=== PATIENT | female | born 1955 | race Caucasian/White ===

== ENCOUNTER 2018-03-27 07:27 | Inpatient (IN) | payer BC ==
[2018-03-27] MEDS ORDERED: DEXAMETHASONE 4 MG/ML 1 ML INJ (10:17)
[2018-03-27] MEDS ORDERED: GLYCOPYRROLATE 0.4 MG INJ (10:17)
[2018-03-27] MEDS ORDERED: MIDAZOLAM 1 MG/ML 2 ML INJ ×2 (10:17→12:18)
[2018-03-27] MEDS ORDERED: NEOSTIGMINE 3 MG/3 ML SYRINGE (10:17)
[2018-03-27] MEDS ORDERED: FENTAnyl 50 MCG/ML VIAL ×2 (10:17→12:18)
[2018-03-27] MEDS ORDERED: ROCURONIUM 50 MG INJ (10:17)
[2018-03-27] MEDS ORDERED: PROPOFOL 20 ML ×2 (10:17→12:34)
[2018-03-27] MEDS ORDERED: LIDOCAINE 2% (SDV) 5 ML INJ (10:17)
[2018-03-27] MEDS ORDERED: ONDANSETRON 4 MG INJ ×2 (10:18→12:18)
[2018-03-27] MEDS ORDERED: SUCCINYLCHOLINE CHLORIDE 100 MG/5 ML SYG IV (10:20)
[2018-03-27 10:54] LABS: ADD MAN DIFF? NO
[2018-03-27 10:55] LABS: WHITE BLOOD COUNT 9.7 10^3/ul (4.8-10.8)
[2018-03-27 10:55] LABS: BASOPHILS % 0.4 % (0.0-2.0); EOSINOPHILS # 0.3 10^3/ul (0.0-0.5); EOSINOPHILS % 3.2 % (0.0-7.0); HEMATOCRIT 41.8 % (37.0-47.0); LYMPHOCYTES # 3.3 10^3/ul (0.8-2.9); LYMPHOCYTES % 34.4 % (15.0-51.0); MEAN CORPUSCULAR HGB CONC 33.5 g/dl (32.0-37.0); MEAN CORPUSCULAR VOLUME 89.7 fl (82.0-101.0); MEAN PLATELET VOLUME 10.7 fl (7.4-10.4); MONOCYTE # 0.7 10^3/ul (0.3-0.9); MONOCYTES % 7.6 % (0.0-11.0); NEUTROPHIL # 5.2 10^3/ul (1.6-7.5); NEUTROPHILS % 54.1 % (39.0-77.0); PLATELET COUNT 259 10^3/UL (140-415); RED BLOOD COUNT 4.66 10^6/ul (4.20-5.40); RED CELL DISTRIBUTION WIDTH 12.2 % (11.5-14.5)
[2018-03-27 11:15] LABS: INR 0.98; PROTIME 13.1 Sec (11.9-14.9)
[2018-03-27 11:16] LABS: PARTIAL THROMBOPLASTIN TIME 30.3 Sec (23.0-35.0)
[2018-03-27 11:20] LABS: ALANINE AMINOTRANSFERASE 50 IU/L (13-69); ALBUMIN 4.1 g/dl (3.3-4.9); ALBUMIN/GLOBULIN RATIO 1.57; ALKALINE PHOSPHATASE 93 IU/L (42-121); ANION GAP 15 (5-13); ASPARTATE AMINO TRANSFERASE 51 IU/L (15-46); BILIRUBIN,INDIRECT 0.5 mg/dl (0-1.1); BILIRUBIN,TOTAL 0.5 mg/dl (0.2-1.3); BLOOD UREA NITROGEN 9 mg/dl (7-20); CALCIUM 9.3 mg/dl (8.4-10.2); CARBON DIOXIDE 27 mmol/L (21-31); CHLORIDE 101 mmol/L (97-110); CREATININE 0.57 mg/dl (0.44-1.00); Estimated GFR > 60 mL/min (>60); GLUCOSE 91 mg/dl (70-220); POTASSIUM 4.6 mmol/L (3.5-5.1); SODIUM 143 mmol/L (135-144); TOTAL PROTEIN 6.7 g/dl (6.1-8.1)
[2018-03-27] MEDS ORDERED: ISOSULFAN BLUE 1% 5 ML INJ SC (11:55)
[2018-03-27] MEDS ORDERED: MEPERIDINE 25 MG INJ IV (12:00)
[2018-03-27] MEDS ORDERED: HYDROmorphONE 1 MG/5 ML IV SYRINGE IV ×2 (12:00)
[2018-03-27] MEDS ORDERED: DIPHENHYDRAMINE 50 MG INJ IV (12:00)
[2018-03-27] MEDS ORDERED: ONDANSETRON 4 MG INJ IV ×2 (12:00→13:30)
[2018-03-27] MEDS ORDERED: METOCLOPRAMIDE 10 MG INJ (12:18)
[2018-03-27] MEDS ORDERED: CEFAZOLIN 1 GM INJ (12:18)
[2018-03-27] MEDS ORDERED: ETOMIDATE 20 MG INJ (12:34)
[2018-03-27] MEDS: ISOSULFAN BLUE 1% 5 ML INJ SC (12:57)
[2018-03-27] MEDS ORDERED: morphine 2 MG INJ IV (13:30)
[2018-03-27] MEDS: HYDROmorphONE 1 MG/5 ML IV SYRINGE IV (14:35)
[2018-03-27] MEDS ORDERED: EPHEDrine SULFATE 50 MG/5 ML SYG (15:29)
[2018-03-27] MEDS: D5W-0.45 NACL + KCL 20 MEQ 1,000 ML IV ×2 (16:43→21:22)
[2018-03-27] MEDS: ACETAMINOPHEN 1000MG/100ML IV 100 ML IVPB (21:32)
[2018-03-28] MEDS ORDERED: clonAZEPAM 0.5 MG TAB PO
[2018-03-28] MEDS ORDERED: HYDROCODONE/APAP (5/325) TAB PO
[2018-03-28] MEDS: D5W-0.45 NACL + KCL 20 MEQ 1,000 ML IV (01:47)
[2018-03-28] MEDS: ACETAMINOPHEN 1000MG/100ML IV 100 ML IVPB (05:43)
[2018-03-28] MEDS: ACCU-CHEK XX ×2 (07:20→11:10)
[2018-03-28] MEDS: CITALOPRAM 20 MG TAB PO (09:00)
[2018-03-28] MEDS: INFLUENZA VIRUS VACCINE 0.5 ML (DISPENSING) IM* (09:00)
[2018-03-28] MEDS: metFORMIN 500 MG TAB PO (09:00)
[2018-03-28] MEDS ORDERED: NON-FORMULARY/PATIENT OWN MED (Simvastatin 40 MG) PO (21:00)
[2018-03-28] MEDS ORDERED: ATORVASTATIN 20 MG TAB PO (21:00)
== END 2018-03-28 16:30 | disposition home or self-care (01) | DRG 581 ==
LOC: SDS 07:27 → REC 13:22 → MS1 15:33
PROVIDERS: Surgery Surgical Oncology
PROC: 0HBU0ZZ Excision of Left Breast, Open Approach (ICD-10-PCS; principal; 2018-03-27 11:00)
PROC: 07B60ZX Excision of Left Axillary Lymphatic, Open Approach, Diagnostic (ICD-10-PCS; 2018-03-27 11:00)
DX: C50.112 Malignant neoplasm of central portion of left female breast (principal); E11.9 Type 2 diabetes mellitus without complications; E78.5 Hyperlipidemia, unspecified; F32.9 Major depressive disorder, single episode, unspecified; F41.9 Anxiety disorder, unspecified; R07.89 Other chest pain; G89.18 Other acute postprocedural pain; Z87.891 Personal history of nicotine dependence; Z79.84 Long term (current) use of oral hypoglycemic drugs
CPT/HCPCS: 71045; 80053; 82962; 85025; 85610; 85730; 88307; 90686; 93005